=== PATIENT | male | born 1940 | race Caucasian/White ===

== ENCOUNTER 2020-03-15 06:17 | Inpatient (IN) | payer MEDICARE, MEDICAID, SELFPAY ==
[2020-03-15] VITALS (46 sets, daily range): BP systolic 116–176; BP diastolic 59–92; PULSE 78–123; RESP 14–48; TEMP 36.4–37.1; O2SAT 71–99; BMI 25.0
--- NOTE | 2020-03-15 06:18 | ECG_ITS ---
[facility] Test Date: 2020-03-15 Pat Name: Jamaal Whitlock Department: Room: ICU03 Gender: Male Test Deck Supervisor: : 1940 Requested By: Spencer Momin Order Number: [id number] Mary Jo MD: Nathaniel Alexander M.D. 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 [id number]
--- NOTE | 2020-03-15 06:18 | XR_ITS ---
WS: [id number] XR chest 1V portable [id number] REASON FOR EXAM: dyspnea/cough FINDINGS: Mild tortuosity of the thoracic aorta without significant dilatation. The heart is mildly enlarged. B attery pack over the left chest with leads to the right atrium and right ventricular apex. Patchy distribution of interstitial and alveolar infiltrative changes throughout both lungs but predo minating on the right. XR/XR chest 1V portable [id number] IMPRESSION: Diffuse infiltrates as above unknown chronicity without prior examination howev er most compatible with acute/subacute pneumonitis, less likely congestive hear t failure.
--- NOTE | 2020-03-15 06:22 | PC.NURSE ---
RT in room, pt placed on Bipap 50% Fio2
--- NOTE | 2020-03-15 06:23 | W.ED.SOB ---
HPI - SOB/Dyspnea General: Chief Complaint: Shortness of Breath/Dyspnea Stated Complaint: Transfer/A. Fib w/ RVR, SOB History of Present Illness: HPI Narrative: 80-year-old male presents emergency room via EMS from [facility] in [place]. He was to be a direct admit to the CSU however upon arrival he is on a nonrebreather mask at 10 L/min in acute respiratory distress impending respiratory failure. Patient was being transferred for A. fib with rapid ventricular response. He was in ER to ER transfer due to the pandemic however on arrival here EMS and the family both state that he tested positive for weeks ago for Covid at the skilled nursing. Its not in his documentation pack and we are verifying with old records the result. He has a history of A. fib history of COPD. Patient is nonresponsive except to painful stimuli son confirms that a do still want him as a full code. He recently had a colostomy takedown at [facility]. Review of Systems General: Reports: ROS unobtainable due to medical condition PFS ED PFSH: Medical History (Updated 03/15/20 @ 07:00 by Spencer Carr DO) A-fib Chronic kidney disease COPD (chronic obstructive pulmonary disease) Perforation of colon Ventricular tachycardia (paroxysmal) Surgical History (Updated 03/15/20 @ 06:54 by Spencer Carr DO) Colostomy status History of colostomy reversal Physical Exam Const: COMMON NORMALS: no acute distress GENERAL APPEARANCE: cooperative and comfortable ORIENTATION/CONSCIOUSNESS: Yes awake, Yes oriented to person, Yes oriented to place and Yes oriented to time HENMT: COMMON NORMALS: normocephalic, atraumatic and hearing grossly normal bilaterally HEAD & SCALP: normocephalic and atraumatic Resp: EFFORT & INSPECTION: Yes abnormal respiratory pattern and Yes respiratory distress AUSCULTATION: rhonchi, wheezes and diminished lung sounds Cardio: RATE: tachycardic RHYTHM: abnormal rhythm irregularly irregular GI: COMMON NORMALS: Soft to palpation and No hepatosplenomegaly present AUSCULTATION: Yes normoactive bowel sounds PALPATION: Yes Soft to palpation, No Tenderness to palpation present (GI), No Guarding due to palpation present (GI) and Yes No hepatosplenomegaly present Extremity: COMMON NORMALS: normal to inspection, capillary refill normal, no clubbing, cyanosis or edema, no calf tenderness and no pedal edema Neuro: SENSORIUM/ORIENTATION: Yes oriented to person, Yes oriented to place and Yes oriented to time Course Vital Signs: Vital signs: Vital Signs Temperature 97.6 F 03/15/20 06:09 Pulse Rate 106 H 03/15/20 08:15 Respiratory Rate 22 H 03/15/20 08:00 Blood Pressure 126/83 03/15/20 08:00 Pulse Oximetry 97 03/15/20 08:00 MDM - SOB/Dyspnea MDM Narrative: Medical decision making narrative: On arrival patient found to be in acute respiratory failure he is on 10 L/min on a nonrebreather and has an irregular respiratory pattern. EMS reports patient was combative in route and was given IV Versed. ABG was done he is found to be in hypercapnic respiratory failure and he was started on BiPAP. Cardizem was continued albeit switched from EMS his tubing to ours. Lab work was repeated the labs available of the thyroid receiving here on transfer were 12 hours old. Reviewing the chart found the patient has a chronic kidney disease and is currently on Bactrim could not confirm what the treatment was for. Also there is report from EMS and is confirmed by family that the patient tested positive for Covid 4 to 5 weeks ago. We are getting documentation for this from the skilled nursing. Since he has been known previously positive within the last 90 days at this point he does not need to be retested. Given his current status with his respiratory failure he will need to be admitted to the ICU. We have started him on BiPAP and repeat an ABG in approximately 45 minutes to an hour. Patient is a full code I discussed with Dr. Quiñones patient's current status and the need for ICU placement. Lab Data: Attestation: I reviewed the patient's lab results. Labs: Lab Results 03/15/20 Range/Units 06:18 Specimen Type Arterial Sample Site Brachial, right ABG pH 7.28 L (7.35-7.45) ABG pCO2 60.2 H* (35-45) mmHg ABG pO2 115.0 H (80.0-100.0) mmH g ABG HCO3 28.3 H (22-26) mmol/L ABG O2 Saturation 98.5 ABG Base Excess 1.0 (-2.0-2.0) mmol/ L Anup Test N/a A-a O2 Gradient 21.7 H (5-10) mmHg Hematocrit 25.2 L (42-52) % Hgb O2 Saturation 96.1 (95-100) % Carboxyhemoglobin 1.4 (0.4-20.1) %THgb Methemoglobin 1.1 (0.4-1.5) % Total Hemoglobin 8.2 L (14-18) g/dL Sodium 138.0 (131-143) mmol/L Potassium 4.9 (3.5-5.0) mmol/L Glucose 190.0 H (70-115) mg/dL Ionized Calcium 1.2 (1.1-1.4) mmol/L O2 Delivery Device Bipap FiO2 50.0 % Polymer Materials Consultant ID Miryam Discharge Plan Discharge Patient Disposition: Admitted As Inpatient Admit Provider: Kaykay Quiñones Clinical Impression: A-fib, Chronic kidney disease, Acute exacerbation of chronic obstructive airways disease, Acute hypercapnic respiratory failure Condition: Stable Coding Level of Care Code ED Holistic Specialist for Chg Fwd Exam Detailed
[2020-03-15 06:29] LABS: ABG PH Result 7.28 (7.35-7.45); Arterial Blood Gas Hematocrit 25.2 % (42-52); Blood Gas Sample Type Arterial; Carboxyhemoglobin 1.4 %THgb (0.4-20.1); HCO3 ABG 28.3 mmol/L (22-26); HGB O2 Sat 96.1 % (95-100); Ionized Calcium Level - ABG 1.2 mmol/L (1.1-1.4); Methemoglobin 1.1 % (0.4-1.5); Oxygen Saturation ABG 98.5; Potassium Level - ABG 4.9 mmol/L (3.5-5.0); Total Hemoglobin 8.2 g/dL (14-18)
[2020-03-15 06:30] LABS: Alveolar-Arterial Oxygen Gradi 21.7 mmHg (5-10); Blood Gas Operator Identificat HARKR; Blood Gas Sample Site Brachial, right; Oxygen Device BIPAP
[2020-03-15 06:31] LABS: ABG PCO2 60.2 mmHg (35-45)
[2020-03-15 07:05] LABS: Basophils % 0.2 %; Eosinophils % 0.1 %; Hematocrit 24.6 % (42.0-52.0); Hemoglobin 7.8 g/dL (11.7-16.6); Lymphocytes # 0.2 10^3/uL (0.8-4.8); Lymphocytes % 1.9 %; Mean Corpuscular HGB Conc 31.7 g/dL (30.0-36.0); Mean Corpuscular Hemoglobin 28.9 pg (28.0-34.0); Mean Corpuscular Volume 91.1 fL (80-94); Mean Platelet Volume 10.6 fL (7.4-10.4); Monocytes # 0.3 10^3/uL (0.2-0.9); Monocytes % 2.6 %; Neutrophils # 12.19 10^3/uL (1.8-7.7); Neutrophils % 94.4 %; Nucleated Red Blood Cells % 0.2 %; Platelet Count 330 10^3/cmm (130-400); Red Cell Distribution Width 16.8 % (12.1-15.1); White Blood Count 12.9 10^3/uL (4.0-10.0)
[2020-03-15 07:15] LABS: Troponin(5th) Baseline 91 ng/L (0-15)
[2020-03-15 07:16] LABS: Alanine Aminotransferase 22 U/L (0-41); Albumin Level 3.2 g/dL (3.5-5.2); Alkaline Phosphatase 117 IU/L (40-130); Aspartate Amino Transferase 23 U/L (0-40); Blood Urea Nitrogen 64 mg/dL (8-23); Carbon Dioxide 26 mmol/L (22-29); Chloride 94 mmol/L (98-107); Globulin 3.9 g/dL (1.3-4.6); Glucose 177 mg/dL (65-115); Osmolality Calculated 303 mOsm/kg (285-295); Sodium 135 mmol/L (136-145); Total Bilirubin 0.3 mg/dL (0.15-1.2); Total Protein 7.1 g/dL (6.6-8.7)
[2020-03-15 07:49] LABS: ABG PCO2 53.2 mmHg (35-45); ABG PH Result 7.33 (7.35-7.45); Arterial Blood Gas Hematocrit 22.6 % (42-52); Blood Gas Allen Test Pos; Blood Gas Operator Identificat MONRO; Blood Gas Sample Site Brachial, left; Blood Gas Sample Type Arterial; Carboxyhemoglobin 1.4 %THgb (0.4-20.1); HCO3 ABG 28.3 mmol/L (22-26); HGB O2 Sat 95.8 % (95-100); Ionized Calcium Level - ABG 1.2 mmol/L (1.1-1.4); Methemoglobin 1.2 % (0.4-1.5); Oxygen Device BIPAP; Oxygen Saturation ABG 98.3; Potassium Level - ABG 4.9 mmol/L (3.5-5.0); Total Hemoglobin 7.4 g/dL (14-18)
--- NOTE | 2020-03-15 08:18 | ECG_ITS ---
[facility] Test Date: 2020-03-15 Pat Name: Jamaal Whitlock Department: Room: ICU03 Gender: Male Senior Accountant: : 1940 Requested By: Spencer Momin Order Number: [id number] Mary Jo MD: Nathaniel Alexander M.D. Measurements Intervals [place] Rate: 92 P: NM: QRS: -72 QRSD: 125 T: -17 QT: 339 QTc: 420 Interpretive Statements ATRIAL FIBRILLATION SEPTAL MYOCARDIAL INFARCTION [40+ ms Q WAVE IN V1/V2], PROBABLY OLD INFERIOR MYOCARDIAL INFARCTION [40+ ms Q WAVE AND/OR ST/T ABNORMALITY IN II/aVF], OF INDETERMINATE AGE No previous ECG available for comparison Electronically Signed On 03-15-2020 20:57:36 HOMICIDE SQUAD SERGEANT by Nathaniel Alexander M.D. [id number]
[2020-03-15 08:46] LABS: Add Urine Microscopic? NO
[2020-03-15 09:19] LABS: Urine Appearance Clear (CLEAR); Urine Color Yellow (Yellow); pH Urine 5 (5-7)
[2020-03-15 09:20] LABS: Bilirubin Urine Neg (Negative); Blood Urine Neg (Negative); Glucose Urine UA Norm (Normal); Ketones Urine Negative (Negative); Leukocyte Esterase Urine Negative (Negative); Nitrate Urine Negative (Negative); Protein Urine Neg (Negative); Urobilinogen Urine Norm (Negative)
[2020-03-15 09:23] LABS: Troponin 5 2HR 88.41 ng/L (0-15)
[2020-03-15] MEDS: FUROsemide 10 mg/mL SDV 4mL 40 MG IVP (09:26)
[2020-03-15 09:30] LABS: SARS Covid-2 Antigen Negative (Negative)
[2020-03-15 09:33] LABS: Troponin 5 2HR Delta -2.59 ABS# (0-10)
--- NOTE | 2020-03-15 09:41 | PM.HP ---
Providers/Chief Complaint Admitting Physician: Kaykay Quiñones MD Primary Care Provider: Prachi Otero MD Chief Complaint: Transfer/A. Fib w/ RVR, SOB History of Present Illness Jamaal Whitlock is a 80 year old male transferred [facility] [place] for shortness of breath. From my understanding he had some significant anemia, etiology unclear and a transfusion of 2 units packed red blood cells occurred. Following this he had significant shortness of breath, and proceeded to the emergency department. BiPAP was required. He was also noted to be in atrial fibrillation with rapid ventricular rate, and Cardizem IV was initiated. In talking with the nursing facility he has mild shortness of breath with any exertion. He had Covid back in October, and tested positive again in February. He had recently come off quarantine. He had not had any recent fevers, vomiting, diarrhea. Greater than 3 months ago he had colostomy reversal which was initially placed secondary to diverticulitis. His wound has reopened and he has been placed on Bactrim recently. The wound was being packed with a small amount of gauze, quarter inch. There has not been any significant drainage. The nursing facility reports that he has some dementia, baseline tremors, can usually carry on a conversation and is ambulatory. They report they use Ativan occasionally when he gets agitated. He received Versed in route by EMS for agitation and is sleepy currently. Review of Systems General: Reports: ROS unobtainable due to mental status (Patient sleepy secondary to effect of Versed.) Medications/Allergies Home Medications Medication Instructions Recorded Confirmed Last Taken Type Unable to Assess 03/15/20 03/15/20 Unknown History Allergies Allergy/AdvReac Type Severity Reaction Status Date / Time azithromycin Allergy Unknown Verified 03/15/20 06:10 PFSH Acute PFSH: Medical History (Updated 03/15/20 @ 10:15 by Harris Almonte MD) A-fib Anemia Anxiety BPH (benign prostatic hyperplasia) Chronic kidney disease COPD (chronic obstructive pulmonary disease) Coronary artery disease Dementia Depression Diastolic CHF Gout Hyperlipidemia Hypertension Perforation of colon Pneumonia due to COVID-19 virus Ventricular tachycardia (paroxysmal) Surgical History (Updated 03/15/20 @ 06:54 by Spencer Carr DO) Colostomy status History of colostomy reversal Family History (Updated 03/15/20 @ 09:57 by Harris Almonte MD) Other Cancer Social History (Updated 03/15/20 @ 09:58 by Harris Almonte MD) Smoking and tobacco status: former smoker Supplemental [facility] Information: No current alcohol intake but unknown if previous. Vitals/I&O/Wt Last Vital Signs Temp 97.6 F 03/15/20 06:09 Pulse 107 H 03/15/20 09:15 Resp 20 H 03/15/20 09:15 BP 123/68 03/15/20 09:15 Pulse Ox 97 03/15/20 09:15 Weight last 48 hrs Weight 83.915 kg Physical Exam Narrative: EXAM NARRATIVE: General exam is a confused white male on BiPAP with a fine baseline tremor noted. He can open his eyes to stimulation, but is not really following directions currently. HEENT: BiPAP in place. Neck is supple no lymphadenopathy or thyromegaly Cardiovascular irregular, irregular with rapid rate of approximately 110. No obvious murmur. Lungs coarse breath sounds bilaterally Abdomen is soft, positive bowel sounds. At previous surgical site there is a bandage which I removed and demonstrated a small skin breakdown with tunneling. 6 cm of 1/4 inch gauze was removed. No significant drainage. . No Patel in place Extremities no cyanosis clubbing or edema, cap refill brisk Skin no rash Neurologic: Sleepy, and cannot cooperate with neurologic exam but moving all 4 extremities spontaneously Urinary Catheter Management^: Patel: Cath Placed During This Visit: yes Urinary Catheter Date of Insertion: 03/15/20 Urinary Catheter Time of Insertion: 08:19 Data : 03/15/20 06:54 03/15/20 06:56 Other data: Rapid flu at outside hospital was negative. BNP 13,180 Troponin fourth-generation 0.063 Procalcitonin 0.96 ABG outside hospital 7.37, PCO2 50, PO2 43 on 50% FiO2 by mask Urinalysis 0-3 red 0-3 whites INR 1.8 EKG reviewed by me demonstrated atrial fibrillation with rapid ventricular rate, left axis deviation. Rate was 143 at outside [place] emergency department. Poor R wave progression was noted. No acute ST elevation. Nonspecific ST-T wave changes noted. Hemoglobin 6.3 on March 14, prior to transfusion Recent previous normal TSH Previous positive Covid test, likely PCR from appearance of testing on October 31, 2019 Rapid Nucleic acid test January 30, 2020 - Positive nucleic acid test February 08, 2020 Second ABG here demonstrated a pH of 7.33, PCO2 53, PO2 105 on BiPAP at 50% FiO2 Troponin here baseline 91 with repeat at 88 at 120 minutes Urinalysis here negative Rapid Covid negative, PCR pending here Chest x-ray visualized me demonstrates diffuse infiltrates right greater than left and interstitial. A&P Assessment and plan (1) Acute hypercapnic respiratory failure: Currently being supported on BiPAP Wean oxygen as tolerated See notations under pneumonia and acute COPD exacerbation Status: Acute (2) Pneumonia: Initiate Zosyn Aspiration precautions Initiate linezolid instead of vancomycin secondary to renal insufficiency and acute kidney injury. MRSA PCR Sputum culture This could represent residual COVID-19 pneumonia Status: Acute (3) Diastolic CHF: He received Lasix prior to transfer and I gave him Lasix 40 mg IV in the emergency department. Hold any IV fluids Wean oxygen as tolerated Check echocardiogram Troponin was performed and elevation noted but not consistent with acute HI as no significant delta Status: Inactive (4) Anemia: Etiology of anemia is unclear Check stool Hemoccult As he is already been transfused 2 units of packed red blood cells iron, B12 studies, etc. would not be that useful. Repeat hemoglobin tomorrow and monitor for any bleeding This may in some part be secondary to his chronic kidney disease as there is some evidence of anemia on old laboratory at the nursing facility. Baseline hemoglobin may be around 9. Status: Inactive (5) Acute exacerbation of chronic obstructive airways disease: Pulmonary toilet with DuoNeb Prednisone 40 mg daily Status: Acute (6) Pneumonia due to COVID-19 virus: Patient had Covid in October, and has retested positive approximately 4 weeks ago. As I do not have a timeline on his improvement, will place him in the viral ICU currently. Rapid Covid was negative here and PCR testing pending. I suspect, his respiratory symptoms are due to heart failure/bacterial pneumonia or COPD exacerbation. If he makes rapid improvement and gets to his baseline oxygen there may not be a need for further quarantine and he could move out of the viral ICU. I do not think remdesivir is warranted currently. Status: Inactive (7) Hyperglycemia: Sliding scale insulin Check hemoglobin A1c Status: Acute (8) A-fib: Currently on a Cardizem drip Not a candidate for anticoagulation currently secondary to significant anemia Initiate Cardizem 60 mg 3 times daily which he takes at the nursing facility and wean off Cardizem drip. Further adjustments may be needed. Hold Eliquis secondary to concern of severe anemia Status: Acute (9) Chronic kidney disease: Acute kidney injury superimposed on chronic kidney disease. We will see if this improves with diuresis Avoid renal toxic medication Hold any further Bactrim which she was receiving as an outpatient. Status: Acute Additional A&P Information Skin breakdown, tunneling wound abdomen. This is small. There is no evidence of significant drainage. Continue packing as was being done at the nursing facility. Dementia/anxiety. Nursing facility as well as family reports Ativan has worked well for her in the past. Continue. Multiple other medical problems as outlined in his past medical history. Full code Hold anticoagulation currently secondary to significant anemia requiring transfusion Attestations Medical Necessity Statement*: Need greater than 2 midnight stay for evaluation and treatment of pneumonia, acute diastolic heart failure, possible Covid Time Spent in Patient Care: Greater than 35 minutes Critical Care Time: 79 minutes spent in critical care at bedside evaluating patient, discussing with multiple subspecialists including ER physician, nursing facility staff, family, etc. in this patient with multiple comorbidities, acute respiratory failure, acute kidney injury, pneumonia, recent Covid, etc. with high risk of and/or decompensation. Coding Level of Care Code Acute Other Sports Coach Or Instructor for John Paul Lenz Diagnoses Acute hypercapnic respiratory failure J96.02 Pneumonia J18.9 Diastolic CHF I50.30 Anemia D64.9 Acute exacerbation of chronic obstructive airways disease J44.1 Pneumonia due to COVID-19 virus U07.1; J12.89 Hyperglycemia R73.9 A-fib I48.91 Chronic kidney disease N18.9
--- NOTE | 2020-03-15 12:18 | ECG_ITS ---
[facility] Test Date: 2020-03-15 Pat Name: Jamaal Whitlock Department: Room: ICU19 Gender: Male Monitor And Storage Bin Tender: : 1940 Requested By: Spencer Momin Order Number: [id number] Mary Jo MD: Nathaniel Alexander M.D. Measurements Intervals [place] Rate: 115 P: CA: QRS: -72 QRSD: 109 T: 49 QT: 295 QTc: 408 Interpretive Statements ATRIAL FIBRILLATION WITH RAPID VENTRICULAR RESPONSE INFERIOR MYOCARDIAL INFARCTION [40+ ms Q WAVE AND/OR ST/T ABNORMALITY IN II/aVF], OF INDETERMINATE AGE WARNING: DATA QUALITY MAY AFFECT INTERPRETATION Compared to ECG 03/15/2020 08:33:19 No significant changes Electronically Signed On 03-15-2020 20:57:52 PREPARATION PLANT REPAIRER by Nathaniel Alexander M.D. [id number]
[2020-03-15 12:29] LABS: Troponin 5 6HR 77.63 ng/L (0-15)
--- NOTE | 2020-03-15 12:49 | PC.RESP ---
Pulmonary Rehab information sent to patient.
[2020-03-15 13:04] LABS: Estmated Average Glucose 108; Hemoglobin A1C 5.4 % (4.0-6.0)
--- NOTE | 2020-03-15 14:10 | USCV_ITS ---
Jamaal Whitlock Age: 80 Gender: M : 1940 Exam Date: 03/15/2020 14:33 Ordering Phys: Harris Almonte MD Technologist: Oliver Lee Exam Location: [facility] [place] Indication: CHF BP: 130 / 86 HR: 94 Rhythm: Sinus Technical Quality: Fair MEASUREMENTS (Male / Female) Normal Values 2D ECHO LV Diastolic Diameter PLAX 5.4 cm 4.2 - 5.9 / 3.9 - 5.3 cm LV Systolic Diameter PLAX 3.4 cm IVS Diastolic Thickness 0.9 cm 0.6 - 1.0 / 0.6 - 0.9 cm IVS Systolic Thickness 1.7 cm LVPW Diastolic Thickness 1.2 cm 0.6 - 1.0 / 0.6 - 0.9 cm LVPW Systolic Thickness 1.5 cm LVOT Diameter 2.1 cm LV Ejection Fraction 2C AL 47.8 % LA Diameter 3.0 cm LA Width 4.7 cm LA Height 4.9 cm RA Width 3.8 cm RA Height 4.5 cm Aorta at Sinotubular Diameter 3.3 cm M-MODE LV Diastolic Diameter MM 6.1 cm 4.2 - 5.9 / 3.9 - 5.3 cm LV Systolic Diameter MM 4.7 cm LV Ejection Fraction MM Teich 43.5 % IVS Diastolic Thickness MM 1.0 cm 0.6 - 1.0 / 0.6 - 0.9 cm IVS Systolic Thickness MM 1.6 cm LVPW Diastolic Thickness MM 1.5 cm 0.6 - 1.0 / 0.6 - 0.9 cm LVPW Systolic Thickness MM 2.0 cm RV Diastolic Diameter MM 1.7 cm Aortic Annulus Diameter 4.0 cm LA Ao Ratio MM 0.6 MV E Point Septal Separation 1.0 cm DOPPLER AV Peak Velocity 103.0 cm/s LVOT Peak Velocity 77.0 cm/s AV Area Cont Eq vti 2.0 cm squared AV Area Cont Eq pk 2.6 cm squared MV Area PHT 5.0 cm squared Mitral E to A Ratio 2.5 MV E' Velocity 55.5 cm/s Mitral E to MV E' Ratio 9.4 Mitral E to LV E' Lateral Ratio 6.4 Mitral E to LV E' Septal Ratio 17.2 TR Peak Velocity 245.7 cm/s TR Peak Gradient 24.1 mmHg TV Peak E Velocity 97.0 cm/s Right Atrial Pressure 3.0 mmHg Pulmonary Artery Systolic Pressu 27.1 mmHg FINDINGS Left Ventricle Severely increased left ventricular cavity size. Severely decreased left ventricular systolic function. Left ventricular ejection fraction is estimated at 37 %. There appeared to be mid to distal anterior mid to distal lateral and apical wall hypokinesis. Right Ventricle The right ventricle is normal in size and function. Right Atrium The right atrium is normal in size. Left Atrium The left atrium is normal in size. Mitral Valve Moderately thickened mitral valve. Moderate mitral annular calcification. No mitral valve stenosis. Trace mitral valve regurgitation. Aortic Valve Moderate aortic valve calcification. No aortic valve stenosis. No aortic valve regurgitation. Tricuspid Valve Structurally normal tricuspid valve without significant stenosis or regurgitation. Pulmonary artery systolic pressure is normal. Pulmonic Valve Structurally normal pulmonic valve without significant stenosis. There is no pulmonic regurgitation. Pericardium Normal pericardium without effusion. Aorta Normal ascending aorta dimension. CONCLUSIONS 1-Severely increased left ventricular cavity size. Severely decreased left ventricular systolic function. Left ventricular ejection fraction is estimated at 37 %. There appeared to be mid to distal anterior mid to distal lateral and apical wall hypokinesis. 2-No significant valve abnormalities. 3-There is no pericardial effusion. 4-Pulmonary artery systolic pressure is within normal limits. 5-Right atrial pressure is around 5 mm of mercury. 6-There are no prior echocardiogram studies to compare. Kaykay Curtis MD (Electronically Signed) Final Date: 15 March 2020 20:32 S
[2020-03-15] MEDS: linezolid premix 600 MG/300 ML PREMIX 300 MG IV (15:13)
[2020-03-15] MEDS: ipratropium-albuterol 3 mL Neb INHALATION ×3 (15:45→23:30)
[2020-03-15] MEDS: piperacillin-tazobactam 3.375 GM in sodium chloride 0.9% (plus) 50 ML IV ×2 (15:55→23:56)
[2020-03-15 16:03] LABS: Glucose Point of Care 186 mg/dL (70-110)
[2020-03-15] MEDS: dilTIAZem 60 mg Tablet PO ×2 (16:18→21:41)
[2020-03-15 17:21] LABS: Glucose Point of Care 203 mg/dL (70-110)
[2020-03-15] MEDS: pantoprazole DR 40 mg Tablet PO (17:23)
[2020-03-15] MEDS: LORazepam 2 mg/mL INJ 1 mL 0.5 MG IVP (17:55)
[2020-03-15] MEDS: morphine 4 mg/mL SDV 1 mL 2 MG IVP (19:04)
--- NOTE | 2020-03-15 19:25 | PC.NURSE ---
Report given to DARINEL Gold. Shift summary: Pt has been on BiPap for most of the afternoon until about dinner time. He frequently demands drinks of water. When he is not hurrying he does not have swallowing problems. He has significant bruising on his right upper extremity He also has bruising on his face and left upper extremity. He yells out for helo and the high flow cannula will be on his chin. He does pull at it. He has had panic attacks , yelling out he cannot breath. His voice could be hear loudly at the nurse station. Cardizem gtt titrated off, after P.O. administered. 650ml yellow urine catheter output. SCds applied.
--- NOTE | 2020-03-15 21:00 | PC.NURSE ---
Blood glucose is 150
[2020-03-15 21:04] LABS: Glucose Point of Care 150 mg/dL (70-110)
[2020-03-15] MEDS: finasteride 5 mg Tablet PO (21:41)
[2020-03-16] VITALS (88 sets, daily range): BP systolic 112–150; BP diastolic 60–112; PULSE 89–145; RESP 16–46; TEMP 36.6–37.3; O2SAT 78–98; BMI 24.5
[2020-03-16] MEDS: ipratropium-albuterol 3 mL Neb INHALATION ×6 (03:41→23:10)
[2020-03-16] MEDS: linezolid premix 600 MG/300 ML PREMIX 300 MG IV ×2 (03:48→14:33)
[2020-03-16 05:15] LABS: Basophils % 0.2 %; Lymphocytes # 0.5 10^3/uL (0.8-4.8); Lymphocytes % 3.3 %; Mean Corpuscular HGB Conc 31.7 g/dL (30.0-36.0); Mean Corpuscular Hemoglobin 28.9 pg (28.0-34.0); Mean Corpuscular Volume 91.3 fL (80-94); Mean Platelet Volume 10.7 fL (7.4-10.4); Monocytes # 1.2 10^3/uL (0.2-0.9); Monocytes % 7.6 %; Neutrophils # 13.67 10^3/uL (1.8-7.7); Neutrophils % 87.7 %; Nucleated Red Blood Cells % 0.3 %; Platelet Count 338 10^3/cmm (130-400); Red Blood Count 2.18 10^6/uL (4.1-5.3); Red Cell Distribution Width 15.9 % (12.1-15.1); White Blood Count 15.6 10^3/uL (4.0-10.0)
[2020-03-16 05:37] LABS: Alanine Aminotransferase 19 U/L (0-41); Albumin Level 3.2 g/dL (3.5-5.2); Alkaline Phosphatase 96 IU/L (40-130); Aspartate Amino Transferase 22 U/L (0-40); Calcium 9.1 mg/dL (8.5-10.5); Carbon Dioxide 27 mmol/L (22-29); Chloride 92 mmol/L (98-107); Globulin 3.5 g/dL (1.3-4.6); Glucose 143 mg/dL (65-115); Magnesium 2.4 mg/dL (1.7-2.3); Osmolality Calculated 306 mOsm/kg (285-295); Sodium 133 mmol/L (136-145); Total Bilirubin 0.3 mg/dL (0.15-1.2); Total Protein 6.7 g/dL (6.6-8.7)
[2020-03-16 05:50] LABS: Blood Urea Nitrogen 91 mg/dL (8-23); Hematocrit 19.9 % (42.0-52.0); Hemoglobin 6.3 g/dL (11.7-16.6)
--- NOTE | 2020-03-16 08:06 | PM.PN ---
Subjective Subjective: Interval history: Patient is a poor historian. He is very hard of hearing and appears to have some degree of dementia. His hemoglobin is down to 6.3 this morning. We have difficulty obtaining IV line and patient's RN is currently working on it. He remains in atrial fibrillation and his heart rate is in 120s. Platelets are stable and WBC slightly increased. BUN and creatinine increased and clinical picture overall suggestive of upper GI bleed. Patient had no bowel movement yet. He has small opening from previous abdominal surgery for colostomy reversal that is currently being packed. Appears dry and not infected with small amount of packing in it. Patient noted to have pacemaker device. He is currently on 50 L 40% FiO2 saturating in the mid 90s. He does not appear in distress. Blood pressure is stable. Vitals/I&O/Wt Last Vital Signs Temp 97.8 F 03/16/20 04:00 Pulse 115 H 03/16/20 06:00 Resp 18 03/16/20 06:00 BP 122/95 03/16/20 06:00 Pulse Ox 94 03/16/20 06:00 03/15/20 03/16/20 03/16/20 22:59 06:59 14:59 Intake Total 1083.000 / 1083.000 350 / 1433.000 Output Total 650 / 650 425 / 1075 Balance 433.000 / 433.000 -75 / 358.000 Weight last 48 hrs Weight 81.873 kg Weight 81.873 kg Weight 83.915 kg Physical Exam Const: COMMON NORMALS: no acute distress Resp: COMMON NORMALS: normal respiratory effort OTHER: Decreased air movement with coarse breath sounds but no rales or wheezing. Cardio: PALPATION: abnormal PMI RHYTHM: abnormal rhythm irregularly irregular OTHER: No lower extremity edema GI: COMMON NORMALS: Normal to inspection, nondistended, normoactive bowel sounds present, Soft to palpation and non-tender PALPATION: Yes Soft to palpation Neuro: COMMON NORMALS: no focal motor deficits Urinary Catheter Management^: Patel: Cath Placed During This Visit: yes Reason for Continuing Indwelling Catheter: Accurate Measurement of Urinary Output in Critically Ill Patients Urinary Catheter Date of Insertion: 03/15/20 Urinary Catheter Time of Insertion: 08:19 Data : 03/16/20 04:30 03/16/20 04:30 Micro: Microbiology 03/16/20 04:05 Blood Culture - Preliminary Blood SPECIMEN COLLECTED A&P Assessment and plan (1) Acute hypercapnic respiratory failure: Currently being supported on BiPAP Wean oxygen as tolerated See notations under pneumonia and acute COPD exacerbation Status: Acute (2) Pneumonia: Initiate Zosyn Aspiration precautions Initiate linezolid instead of vancomycin secondary to renal insufficiency and acute kidney injury. MRSA PCR Sputum culture This could represent residual COVID-19 pneumonia Status: Acute (3) Diastolic CHF: He received Lasix prior to transfer and I gave him Lasix 40 mg IV in the emergency department. Hold any IV fluids Wean oxygen as tolerated Check echocardiogram Troponin was performed and elevation noted but not consistent with acute VT as no significant delta Status: Inactive (4) Anemia: Etiology of anemia is unclear Check stool Hemoccult As he is already been transfused 2 units of packed red blood cells iron, B12 studies, etc. would not be that useful. Repeat hemoglobin tomorrow and monitor for any bleeding This may in some part be secondary to his chronic kidney disease as there is some evidence of anemia on old laboratory at the nursing facility. Baseline hemoglobin may be around 9. Status: Inactive (5) Acute exacerbation of chronic obstructive airways disease: Pulmonary toilet with DuoNeb Prednisone 40 mg daily Status: Acute (6) Pneumonia due to COVID-19 virus: Patient had Covid in October, and has retested positive approximately 4 weeks ago. As I do not have a timeline on his improvement, will place him in the viral ICU currently. Rapid Covid was negative here and PCR testing pending. I suspect, his respiratory symptoms are due to heart failure/bacterial pneumonia or COPD exacerbation. If he makes rapid improvement and gets to his baseline oxygen there may not be a need for further quarantine and he could move out of the viral ICU. I do not think remdesivir is warranted currently. Status: Inactive (7) Hyperglycemia: Sliding scale insulin Check hemoglobin A1c Status: Acute (8) A-fib: Currently on a Cardizem drip Not a candidate for anticoagulation currently secondary to significant anemia Initiate Cardizem 60 mg 3 times daily which he takes at the nursing facility and wean off Cardizem drip. Further adjustments may be needed. Hold Eliquis secondary to concern of severe anemia Status: Acute (9) Chronic kidney disease: Acute kidney injury superimposed on chronic kidney disease. We will see if this improves with diuresis Avoid renal toxic medication Hold any further Bactrim which she was receiving as an outpatient. Status: Acute Additional A&P Information Skin breakdown, tunneling wound abdomen. This is small. There is no evidence of significant drainage. Continue packing as was being done at the nursing facility. Dementia/anxiety. Nursing facility as well as family reports Ativan has worked well for her in the past. Continue. Multiple other medical problems as outlined in his past medical history. Full code Hold anticoagulation currently secondary to significant anemia requiring transfusion PLAN: Discontinue prednisone and continue high-dose Protonix. Unfortunately we do not have IV form due to shortage. We will give patient 2 units of PRBC. Continue Zosyn and linezolid. Patient is currently off Cardizem drip. Will increase p.o. Cardizem to 90 mg 3 times daily for better heart rate control. Continue holding Eliquis. If continues to bleed we will require upper endoscopy and colonoscopy. Attestations Medical Necessity Statement*: Patient with A. fib and rapid ventricular response as well as severe anemia with concern for GI bleed requires close ICU monitoring and treatment. Coding Level of Care Code Acute Desktop Support Engineer for g Fwd Diagnoses Acute hypercapnic respiratory failure J96.02 Pneumonia J18.9 Diastolic CHF I50.30 Anemia D64.9 Acute exacerbation of chronic obstructive airways disease J44.1 Pneumonia due to COVID-19 virus U07.1; J12.89 Hyperglycemia R73.9 A-fib I48.91 Chronic kidney disease N18.9
[2020-03-16 08:10] LABS: Glucose Point of Care 162 mg/dL (70-110)
[2020-03-16] MEDS: allopurinol 100 mg Tablet 200 MG PO (08:37)
[2020-03-16] MEDS: tamsulosin 0.4 mg Capsule PO (08:37)
[2020-03-16] MEDS: pantoprazole DR 40 mg Tablet PO ×2 (08:37→17:45)
[2020-03-16] MEDS: roflumilast 500 mcg Tablet PO (08:38)
[2020-03-16] MEDS: dilTIAZem 60 mg Tablet 90 MG PO ×3 (08:38→20:28)
[2020-03-16] MEDS: piperacillin-tazobactam 3.375 GM in sodium chloride 0.9% (plus) 50 ML IV ×2 (10:04→16:43)
[2020-03-16] MEDS: gabapentin 100 mg Capsule 200 MG PO ×2 (10:06→17:45)
[2020-03-16 11:48] LABS: Glucose Point of Care 141 mg/dL (70-110)
[2020-03-16] MEDS: morphine 4 mg/mL SDV 1 mL 2 MG IVP (11:58)
--- NOTE | 2020-03-16 15:25 | PC.NURSE ---
Called Dr Ruano regarding patients bleeding around iv site, venipuncture sites. Did express to him the need for a central line and DIC panel. He did order for DIC panel and this was drawn. Pt did receive 1 unit of PRBC's however, patient is bleeding around iv site, will hold off on 2nd unit of blood until the DIC panel comes back.
[2020-03-16 15:47] LABS: INR 1.55 (0.8-1.2)
[2020-03-16 15:48] LABS: Fibrinogen 627 mg/dL (174-498); Partial Thromboplastin Time 34.7 SECONDS (23.9-36.7)
[2020-03-16 15:57] LABS: D Dimer 7.29 ug/mIFEU (0-0.59)
[2020-03-16 16:57] LABS: Glucose Point of Care 238 mg/dL (70-110)
[2020-03-16] MEDS: acetaminophen 325 mg Tablet 650 MG PO (17:40)
--- NOTE | 2020-03-16 17:50 | PC.PT ---
PT note; nursing staff states patient unable to participate with physical therapy evaluation at this time, will follow
--- NOTE | 2020-03-16 19:00 | PC.NURSE ---
Report received, care assumed. Monitor alarms, plan of care et previous orders reviewed. patient currently sitting in bed, HOB at 45 degrees, with unit # [id number] infusing. Patient is very restless et agitated. Attempts to verbally reduce anxiety have been unsuccessful due to patient's hearing loss. RN reassured patient that i would stay with him. RN is able to communicate with patient by writing notes on dry erase board. Patient is currently on heated high flow nasal canula at 50 L with FiO2 of 40%. Please see physical assessment et vital sign flowsheet for details .
--- NOTE | 2020-03-16 19:45 | PC.NURSE ---
Unit of PRBCs infused. Vital signs noted. No transfusion reaction noted at this time. Will keep infusion bag et tubing per protocol.
[2020-03-16] MEDS: finasteride 5 mg Tablet PO (20:29)
[2020-03-16 22:01] LABS: Glucose Point of Care 116 mg/dL (70-110)
[2020-03-17] VITALS (91 sets, daily range): BP systolic 103–160; BP diastolic 55–133; PULSE 93–133; RESP 10–39; TEMP 36.6–37.1; O2SAT 83–98; BMI 23.9
[2020-03-17] MEDS: piperacillin-tazobactam 3.375 GM in sodium chloride 0.9% (plus) 50 ML IV ×4 (00:40→23:15)
[2020-03-17] MEDS: ipratropium-albuterol 3 mL Neb INHALATION ×5 (03:02→20:20)
--- NOTE | 2020-03-17 03:45 | PC.NURSE ---
Patient's son, Duane came to hospital to visit patient. VICU supercharger repair supervisor went to speak with him about visiting guidelines. Patient's son Duane face-timed with patient at this time.
[2020-03-17] MEDS: linezolid premix 600 MG/300 ML PREMIX 300 MG IV ×2 (03:49→17:21)
--- NOTE | 2020-03-17 04:00 | PC.NURSE ---
Received patient's critical BUN. Notified Dr. Quiñones. No new orders given at this time.
[2020-03-17 05:21] LABS: Alanine Aminotransferase 21 U/L (0-41); Albumin Level 3.3 g/dL (3.5-5.2); Alkaline Phosphatase 91 IU/L (40-130); Anion Gap 18.5 (5-19); Aspartate Amino Transferase 24 U/L (0-40); Calcium 8.8 mg/dL (8.5-10.5); Carbon Dioxide 26 mmol/L (22-29); Chloride 93 mmol/L (98-107); Globulin 3.2 g/dL (1.3-4.6); Glucose 149 mg/dL (65-115); Osmolality Calculated 309 mOsm/kg (285-295); Potassium 4.5 mmol/L (3.5-5.1); Sodium 133 mmol/L (136-145); Total Bilirubin 0.7 mg/dL (0.15-1.2); Total Protein 6.5 g/dL (6.6-8.7)
[2020-03-17 05:29] LABS: Blood Urea Nitrogen 98 mg/dL (8-23)
[2020-03-17 07:28] LABS: Glucose Point of Care 161 mg/dL (70-110)
--- NOTE | 2020-03-17 08:11 | P.PN_ITS ---
Subjective Subjective: Interval history: Patient's CBC was canceled for some reason but this morning and noticed his WBC count improved to 14 and hemoglobin appears at 8.6. Creatinine slightly worsened. Patient had episode of choking this morning as soon as he started eating. History was taken away and speech therapy was requested. He was able to settle and was doing clinically okay. His oxygen was slightly increased to 50 L and 50% and he was saturating in the low 90s. He denies chest pain or abdominal pain. He had no bowel movement yet. He had 1350 urinary output. He moves all extremities without problems. He has upper extremity tremors and as per daughter he was not previously diagnosed with Parkinson's disease although family was suspecting. Vitals/I&O/Wt Last Vital Signs Temp 98.2 F 03/17/20 04:00 Pulse 107 H 03/17/20 08:10 Resp 22 H 03/17/20 08:10 BP 127/76 03/17/20 06:00 Pulse Ox 93 03/17/20 08:10 03/16/20 03/17/20 03/17/20 22:59 06:59 14:59 Intake Total 1165 / 1925 750 / 2675 Output Total 550 / 900 650 / 1550 Balance 615 / 1025 100 / 1125 Weight last 48 hrs Weight 80.014 kg Weight 81.873 kg Weight 81.873 kg Physical Exam Const: COMMON NORMALS: no acute distress Resp: COMMON NORMALS: normal respiratory effort OTHER: Decreased air movement with coarse breath sounds but no rales or wheezing. Cardio: PALPATION: abnormal PMI RHYTHM: abnormal rhythm irregularly irregular OTHER: No lower extremity edema GI: COMMON NORMALS: Normal to inspection, nondistended, normoactive bowel so unds present, Soft to palpation and non-tender PALPATION: Yes Soft to palpation Neuro: COMMON NORMALS: no focal motor deficits Urinary Catheter Management^: Patel: Cath Placed During This Visit: yes Reason for Continuing Indwelling Catheter: Accurate Measurement of Urinary Output in Critically Ill Patients Urinary Catheter Date of Insertion: 03/15/20 Urinary Catheter Time of Insertion: 08:19 Data : 03/16/20 04:30 03/17/20 04:00 Micro: Microbiology 03/16/20 04:05 Blood Culture - Preliminary Blood NEGATIVE TO DATE 03/16/20 09:30 Blood Culture - Preliminary Blood SPECIMEN COLLECTED A&P Assessment and plan (1) Acute hypercapnic respiratory failure: Currently being supported on BiPAP Wean oxygen as tolerated See notations under pneumonia and acute COPD exacerbation Status: Acute (2) Pneumonia: Initiate Zosyn Aspiration precautions Initiate linezolid instead of vancomycin secondary to renal insufficiency and acute kidney injury. MRSA PCR Sputum culture This could represent residual COVID-19 pneumonia Status: Acute (3) Diastolic CHF: He received Lasix prior to transfer and I gave him Lasix 40 mg IV in the emergency department. Hold any IV fluids Wean oxygen as tolerated Check echocardiogram Troponin was performed and elevation noted but not consistent with acute MD as no significant delta Status: Inactive (4) Anemia: Etiology of anemia is unclear Check stool Hemoccult As he is already been transfused 2 units of packed red blood cells iron, B12 studies, etc. would not be that useful. Repeat hemoglobin tomorrow and monitor for any bleeding This may in some part be secondary to his chronic kidney disease as there is some evidence of anemia on old laboratory at the nursing facility. Baseline hemoglobin may be around 9. Status: Inactive (5) Acute exacerbation of chronic obstructive airways disease: Pulmonary toilet with DuoNeb Prednisone 40 mg daily Status: Acute (6) Pneumonia due to COVID-19 virus: Patient had Covid in October, and has retested positive approximately 4 weeks ago. As I do not have a timeline on his improvement, will place him in the viral ICU currently. Rapid Covid was negative here and PCR testing pending. I suspect, his respiratory symptoms are due to heart failure/bacterial pneumonia or COPD exacerbation. If he makes rapid improvement and gets to his baseline oxygen there may not be a need for further quarantine and he could move out of the viral ICU. I do not think remdesivir is warranted currently. Status: Inactive (7) Hyperglycemia: Sliding scale insulin Check hemoglobin A1c Status: Acute (8) A-fib: Currently on a Cardizem drip Not a candidate for anticoagulation currently secondary to significant anemia Initiate Cardizem 60 mg 3 times daily which he takes at the nursing facility and wean off Cardizem drip. Further adjustments may be needed. Hold Eliquis secondary to concern of severe anemia Status: Acute (9) Chronic kidney disease: Acute kidney injury superimposed on chronic kidney disease. We will see if this improves with diuresis Avoid renal toxic medication Hold any further Bactrim which she was receiving as an outpatient. Status: Acute Additional A&P Information Skin breakdown, tunneling wound abdomen. This is small. There is no evidence o f significant drainage. Continue packing as was being done at the nursing facility. Dementia/anxiety. Nursing facility as well as family reports Ativan has worked well for her in the past. Continue. Multiple other medical problems as outlined in his past medical history. Full code Hold anticoagulation currently secondary to significant anemia requiring transfusion PLAN: Continue antibiotics which will adequately cover for aspiration pneumonia. It appears that patient has combination of COVID-19 pneumonia and aspiration as most of his infiltrates are on the right side. Awaiting speech therapy evaluation. Continue IV fluids. Awaiting CBC. Patient's Eliquis should be close to be completely metabolized. Will request PT/PTT and chest x-ray in a.m. Overall patient has poor prognosis given his age, functional status, underlying medical problems and now dysphagia. I had discussion with patient's daughter yesterday who wants patient to remain full code. Attestations Medical Necessity Statement*: Patient with acute hypoxic respiratory failure as well as COVID-19 infection and aspiration requires close ICU monitoring and treatment. Time Spent in Patient Care: 16 - 35 minutes Coding Level of Care Code Acute Group Insurance Specialist for [facility] Fwd Diagnoses Acute hypercapnic respiratory failure J96.02 Pneumonia J18.9 Diastolic CHF I50.30 Anemia D64.9 Acute exacerbation of chronic obstructive airways disease J44.1 Pneumonia due to COVID-19 virus U07.1; J12.89 Hyperglycemia R73.9 A-fib I48.91 Chronic kidney disease N18.9
--- NOTE | 2020-03-17 08:18 | PC.NURSE ---
Pt choked on food this morning after 2 bites, does require someone to feed him. Speech eval order entered and Dr Ruano notified.
[2020-03-17] MEDS: morphine 4 mg/mL SDV 1 mL 2 MG IVP (08:37)
--- NOTE | 2020-03-17 10:52 | PC.NURSE ---
Pt meds not given per MD, patient awaiting speech therapy eval. All meds held, Wilfredo ordered IVP prn
[2020-03-17 11:48] LABS: Glucose Point of Care 154 mg/dL (70-110)
[2020-03-17 11:55] LABS: Basophils % 0.1 %; Hematocrit 26.6 % (42.0-52.0); Hemoglobin 8.6 g/dL (11.7-16.6); Lymphocytes # 0.6 10^3/uL (0.8-4.8); Lymphocytes % 3.9 %; Mean Corpuscular HGB Conc 32.3 g/dL (30.0-36.0); Mean Corpuscular Volume 89.6 fL (80-94); Mean Platelet Volume 10.6 fL (7.4-10.4); Monocytes # 1.3 10^3/uL (0.2-0.9); Monocytes % 8.8 %; Neutrophils # 12.49 10^3/uL (1.8-7.7); Neutrophils % 85.9 %; Nucleated Red Blood Cells # 0.1 /100WBC; Nucleated Red Blood Cells % 0.6 %; Platelet Count 302 10^3/cmm (130-400); Red Blood Count 2.97 10^6/uL (4.1-5.3); White Blood Count 14.5 10^3/uL (4.0-10.0)
[2020-03-17 16:46] LABS: Glucose Point of Care 181 mg/dL (70-110)
[2020-03-17] MEDS: budesonide 0.5 mg/2 mL Neb INHALATION (20:20)
[2020-03-17 20:48] LABS: Glucose Point of Care 156 mg/dL (70-110)
[2020-03-17] MEDS: dilTIAZem 60 mg Tablet 90 MG PO (20:50)
[2020-03-17] MEDS: LORazepam 2 mg/mL INJ 1 mL 0.5 MG IVP (21:49)
[2020-03-18] VITALS (37 sets, daily range): BP systolic 95–162; BP diastolic 61–99; PULSE 95–139; RESP 13–34; TEMP 36.4–36.8; O2SAT 86–97; BMI 23.9
[2020-03-18] MEDS: morphine 4 mg/mL SDV 1 mL 2 MG IVP ×2 (03:10→16:27)
[2020-03-18] MEDS: LORazepam 2 mg/mL INJ 1 mL 0.5 MG IVP ×2 (03:10→23:18)
[2020-03-18] MEDS: linezolid premix 600 MG/300 ML PREMIX 300 MG IV (03:11)
--- NOTE | 2020-03-18 03:40 | PC.NURSE ---
Patient very agitated. Pulling O2 out of nose, yelling at RN et not responding to verbal attempts to calm et provide reassurance to patient. Ativan given at this time. Will continue to monitor.
--- NOTE | 2020-03-18 04:00 | PC.NURSE ---
Patient responded to ativan. Patient no calmer, not yelling/ swinging at RN. Will continue to monitor.
[2020-03-18] MEDS: ipratropium-albuterol 3 mL Neb INHALATION ×5 (04:22→20:44)
[2020-03-18 05:10] LABS: Alanine Aminotransferase 24 U/L (0-41); Albumin Level 3.2 g/dL (3.5-5.2); Alkaline Phosphatase 88 IU/L (40-130); Anion Gap 14.5 (5-19); Aspartate Amino Transferase 29 U/L (0-40); Calcium 8.8 mg/dL (8.5-10.5); Carbon Dioxide 30 mmol/L (22-29); Chloride 97 mmol/L (98-107); Globulin 3.1 g/dL (1.3-4.6); Glucose 96 mg/dL (65-115); Osmolality Calculated 313 mOsm/kg (285-295); Potassium 4.5 mmol/L (3.5-5.1); Sodium 137 mmol/L (136-145); Total Bilirubin 0.5 mg/dL (0.15-1.2); Total Protein 6.3 g/dL (6.6-8.7)
[2020-03-18 05:18] LABS: Blood Urea Nitrogen 93 mg/dL (8-23)
--- NOTE | 2020-03-18 06:00 | XR_ITS ---
WS: [id number] XR chest 1V portable [id number] REASON FOR EXAM: Aspiration, COVID-19 infection FINDINGS: In comparison to previous examination of 03/15/2020, the diffuse lung opacities in both lungs show so me decreasing density and volume. No other interval change or new finding identified. XR/XR chest 1V portable [id number] IMPRESSION: There is been some resolution of the diffuse infiltrative changes in both lungs .
[2020-03-18 06:04] LABS: INR 1.28 (0.8-1.2)
[2020-03-18 06:05] LABS: Partial Thromboplastin Time 32.7 SECONDS (23.9-36.7)
[2020-03-18 07:34] LABS: Basophils % 0.1 %; Eosinophils # 0.1 10^3/uL (0.0-0.8); Eosinophils % 0.4 %; Hematocrit 25.3 % (42.0-52.0); Hemoglobin 7.9 g/dL (11.7-16.6); Lymphocytes # 0.6 10^3/uL (0.8-4.8); Mean Corpuscular HGB Conc 31.2 g/dL (30.0-36.0); Mean Corpuscular Hemoglobin 28.8 pg (28.0-34.0); Mean Corpuscular Volume 92.3 fL (80-94); Mean Platelet Volume 10.8 fL (7.4-10.4); Monocytes # 1.3 10^3/uL (0.2-0.9); Monocytes % 11.1 %; Neutrophils # 9.73 10^3/uL (1.8-7.7); Neutrophils % 81.6 %; Nucleated Red Blood Cells # 0.1 /100WBC; Nucleated Red Blood Cells % 0.8 %; Platelet Count 291 10^3/cmm (130-400); Red Blood Count 2.74 10^6/uL (4.1-5.3); Red Cell Distribution Width 15.1 % (12.1-15.1); White Blood Count 11.9 10^3/uL (4.0-10.0)
[2020-03-18 07:38] LABS: Glucose Point of Care 119 mg/dL (70-110)
[2020-03-18] MEDS: piperacillin-tazobactam 3.375 GM in sodium chloride 0.9% (plus) 50 ML IV ×2 (08:44→15:28)
[2020-03-18] MEDS: dilTIAZem 60 mg Tablet 90 MG PO ×3 (08:45→20:56)
[2020-03-18] MEDS: tamsulosin 0.4 mg Capsule PO (08:45)
[2020-03-18] MEDS: pantoprazole DR 40 mg Tablet PO (08:45)
[2020-03-18] MEDS: gabapentin 100 mg Capsule 200 MG PO (08:45)
[2020-03-18] MEDS: allopurinol 100 mg Tablet 200 MG PO (08:45)
[2020-03-18] MEDS: roflumilast 500 mcg Tablet PO (08:45)
--- NOTE | 2020-03-18 09:15 | P.PN_ITS ---
Subjective Subjective: Interval history: Patient frequently gets agitated and combative. Patient had difficulty swallowing and speech therapy was requested. Patient has not been evaluated yet. WBC is improving. Hemoglobin is 7.9 and platelets appear stable. He had no bowel movement yet. His INR appears to be improving. Creatinine also improved and down to 2.5. Continues to have bilateral infiltrates which appear to be unchanged. Awaiting official report. Patient had 1800 urinary output since yesterday. He is tachycardic as we were trying to avoid oral Cardizem. IV Cardizem is short-acting and does not appear to control it appropriately. Discussed with RN and we will see if we can give oral Cardizem with applesauce. Patient currently on 50 L 40% FiO2 saturating in the low 90s. Vitals/I&O/Wt Last Vital Signs Temp 98.0 F 03/18/20 08:00 Pulse 134 H 03/18/20 08:26 Resp 22 H 03/18/20 08:26 BP 133/79 03/18/20 08:00 Pulse Ox 92 03/18/20 08:26 03/17/20 03/18/20 03/18/20 22:59 06:59 14:59 Intake Total 350 / 640 350 / 990 0 / 0 Output Total 600 / 1000 1000 / 2000 Balance -250 / -360 -650 / -1010 0 / 0 Weight last 48 hrs Weight 80.014 kg Weight 80.014 kg Physical Exam Const: COMMON NORMALS: no acute distress Resp: COMMON NORMALS: normal respiratory effort OTHER: Decreased air movement with coarse breath sounds but no rales or wheezing. Cardio: PALPATION: abnormal PMI RHYTHM: abnormal rhythm irregularly irregular OTHER: No lower extremity edema GI: COMMON NORMALS: Normal to inspection, nondistended, normoactive bowel julián nds present, Soft to palpation and non-tender PALPATION: Yes Soft to palpation Neuro: COMMON NORMALS: no focal motor deficits Urinary Catheter Management^: Patel: Cath Placed During This Visit: yes Reason for Continuing Indwelling Catheter: Accurate Measurement of Urinary Output in Critically Ill Patients Urinary Catheter Date of Insertion: 03/15/20 Urinary Catheter Time of Insertion: 08:19 Data : 03/18/20 06:58 03/18/20 03:30 Micro: Microbiology 03/16/20 09:30 Blood Culture - Preliminary Blood NEGATIVE TO DATE 03/16/20 04:05 Blood Culture - Preliminary Blood NEGATIVE TO DATE A&P Assessment and plan (1) Pneumonia: Initiate Zosyn Aspiration precautions Initiate linezolid instead of vancomycin secondary to renal insufficiency and acute kidney injury. MRSA PCR Sputum culture This could represent residual COVID-19 pneumonia Status: Acute (2) Diastolic CHF: He received Lasix prior to transfer and I gave him Lasix 40 mg IV in the emergency department. Hold any IV fluids Wean oxygen as tolerated Check echocardiogram Troponin was performed and elevation noted but not consistent with acute MT as no significant delta Status: Inactive (3) Anemia: Etiology of anemia is unclear Check stool Hemoccult As he is already been transfused 2 units of packed red blood cells iron, B12 studies, etc. would not be that useful. Repeat hemoglobin tomorrow and monitor for any bleeding This may in some part be secondary to his chronic kidney disease as there is some evidence of anemia on old laboratory at the nursing facility. Baseline hemoglobin may be around 9. Status: Inactive (4) Acute exacerbation of chronic obstructive airways disease: Pulmonary toilet with DuoNeb Prednisone 40 mg daily Status: Acute (5) Pneumonia due to COVID-19 virus: Patient had Covid in October, and has retested positive approximately 4 weeks ago. As I do not have a timeline on his improvement, will place him in the viral ICU currently. Rapid Covid was negative here and PCR testing pending. I suspect, his respiratory symptoms are due to heart failure/bacterial pneumonia or COPD exacerbation. If he makes rapid improvement and gets to his baseline oxygen there may not be a need for further quarantine and he could move out of the viral ICU. I do not think remdesivir is warranted currently. Status: Inactive (6) Hyperglycemia: Sliding scale insulin Check hemoglobin A1c Status: Acute (7) A-fib: Currently on a Cardizem drip Not a candidate for anticoagulation currently secondary to significant anemia Initiate Cardizem 60 mg 3 times daily which he takes at the nursing facility and wean off Cardizem drip. Further adjustments may be needed. Hold Eliquis secondary to concern of severe anemia Status: Acute (8) Chronic kidney disease: Acute kidney injury superimposed on chronic kidney disease. We will see if this improves with diuresis Avoid renal toxic medication Hold any further Bactrim which she was receiving as an outpatient. 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 Currently appears compensated. Status: Acute (11) Oropharyngeal dysphagia: Status: Acute Additional A&P Information Skin breakdown, tunneling wound abdomen. This is small. There is no evidence of significant drainage. Continue packing as was being done at the nursing facility. Dementia/anxiety. Nursing facility as well as family reports Ativan has worked well for her in the past. Continue. Multiple other medical problems as outlined in his past medical history. Full code Hold anticoagulation currently secondary to significant anemia requiring transfusion PLAN: Continue Zosyn but discontinue linezolid for now and monitor. Cultures so far negative. Continue daily evaluation for IV fluids versus diuretic. Currently will hold due to risk for fluid overload. We will try and see if patient can tolerate oral Cardizem with applesauce if not then we will have to restart Cardizem drip. Awaiting speech therapy evaluation Attestations Medical Necessity Statement*: Patient with acute hypoxic and hypercapnic respiratory failure requires close ICU monitoring and treatment. 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
--- NOTE | 2020-03-18 10:45 | XR_ITS ---
WS: [id number] CHEST XRAY TECHNIQUE: Portable chest. CLINICAL INFORMATION: dyspnea/cough FINDINGS: Cardiac pacer. Cardiomegaly. Aortic calcification. Right PICC line with tip in the distal SVC. No pneumothorax. Stable diffuse bilateral pulmonary infi ltrates. XR/XR chest 1V portable [id number] IMPRESSION: Right PICC line with tip in distal SVC. No pneumothorax.
[2020-03-18 11:16] LABS: Glucose Point of Care 210 mg/dL (70-110)
[2020-03-18 11:16] LABS: Glucose Point of Care 189 mg/dL (70-110)
[2020-03-18 11:23] LABS: Basophils % 0.1 %; Eosinophils # 0.1 10^3/uL (0.0-0.8); Eosinophils % 1.1 %; Hematocrit 24.9 % (42.0-52.0); Hemoglobin 7.7 g/dL (11.7-16.6); Lymphocytes # 0.7 10^3/uL (0.8-4.8); Lymphocytes % 5.6 %; Mean Corpuscular HGB Conc 30.9 g/dL (30.0-36.0); Mean Corpuscular Hemoglobin 29.2 pg (28.0-34.0); Mean Corpuscular Volume 94.3 fL (80-94); Mean Platelet Volume 10.5 fL (7.4-10.4); Monocytes # 1.2 10^3/uL (0.2-0.9); Monocytes % 10.2 %; Neutrophils % 81.6 %; Nucleated Red Blood Cells # 0.1 /100WBC; Nucleated Red Blood Cells % 0.5 %; Platelet Count 281 10^3/cmm (130-400); Red Blood Count 2.64 10^6/uL (4.1-5.3); Red Cell Distribution Width 15.2 % (12.1-15.1); White Blood Count 11.5 10^3/uL (4.0-10.0)
[2020-03-18 14:16] LABS: Coronavirus Lab Test PTC Negative
[2020-03-18 17:34] LABS: Glucose Point of Care 186 mg/dL (70-110)
--- NOTE | 2020-03-18 18:42 | PC.NURSE ---
Pt is resting comfortably in bed. Shows no sign of discomfort, 02 sats are mid 80's, call went out to Dr. Cantu to get parameters. New orders received.
[2020-03-18] MEDS: budesonide 0.5 mg/2 mL Neb INHALATION (20:44)
[2020-03-18] MEDS: finasteride 5 mg Tablet PO (20:56)
[2020-03-18 20:57] LABS: Glucose Point of Care 166 mg/dL (70-110)
[2020-03-19] VITALS (40 sets, daily range): BP systolic 119–142; BP diastolic 53–90; PULSE 87–143; RESP 17–33; TEMP 36.4–36.9; O2SAT 83–99
[2020-03-19] MEDS: ipratropium-albuterol 3 mL Neb INHALATION ×6 (00:22→19:55)
[2020-03-19] MEDS: piperacillin-tazobactam 3.375 GM in sodium chloride 0.9% (plus) 50 ML IV ×3 (01:00→16:15)
[2020-03-19 04:06] LABS: Basophils % 0.1 %; Eosinophils # 0.1 10^3/uL (0.0-0.8); Eosinophils % 0.7 %; Hematocrit 23.5 % (42.0-52.0); Hemoglobin 7.2 g/dL (11.7-16.6); Lymphocytes # 0.6 10^3/uL (0.8-4.8); Lymphocytes % 4.3 %; Mean Corpuscular HGB Conc 30.6 g/dL (30.0-36.0); Mean Corpuscular Hemoglobin 28.9 pg (28.0-34.0); Mean Corpuscular Volume 94.4 fL (80-94); Mean Platelet Volume 10.5 fL (7.4-10.4); Monocytes # 1.3 10^3/uL (0.2-0.9); Monocytes % 8.9 %; Neutrophils # 12.16 10^3/uL (1.8-7.7); Neutrophils % 84.7 %; Nucleated Red Blood Cells # 0.1 /100WBC; Nucleated Red Blood Cells % 0.4 %; Platelet Count 277 10^3/cmm (130-400); Red Blood Count 2.49 10^6/uL (4.1-5.3); Red Cell Distribution Width 15.1 % (12.1-15.1); White Blood Count 14.4 10^3/uL (4.0-10.0)
[2020-03-19 04:35] LABS: Alanine Aminotransferase 42 U/L (0-41); Albumin Level 3.2 g/dL (3.5-5.2); Alkaline Phosphatase 96 IU/L (40-130); Anion Gap 13.4 (5-19); Aspartate Amino Transferase 51 U/L (0-40); Calcium 8.9 mg/dL (8.5-10.5); Carbon Dioxide 32 mmol/L (22-29); Chloride 98 mmol/L (98-107); Creatinine Clr Calc Pharmacy 29.7597; Glucose 127 mg/dL (65-115); Magnesium 2.8 mg/dL (1.7-2.3); Osmolality Calculated 315 mOsm/kg (285-295); Potassium 4.4 mmol/L (3.5-5.1); Sodium 139 mmol/L (136-145); Total Bilirubin 0.7 mg/dL (0.15-1.2); Total Protein 6.2 g/dL (6.6-8.7)
[2020-03-19 04:48] LABS: Blood Urea Nitrogen 85 mg/dL (8-23)
[2020-03-19] MEDS: morphine 4 mg/mL SDV 1 mL 2 MG IVP ×2 (05:12→11:39)
[2020-03-19] MEDS: budesonide 0.5 mg/2 mL Neb INHALATION ×2 (07:39→19:55)
[2020-03-19] MEDS: pantoprazole DR 40 mg Tablet PO ×2 (08:00→17:13)
[2020-03-19] MEDS: allopurinol 100 mg Tablet 200 MG PO (08:00)
[2020-03-19] MEDS: roflumilast 500 mcg Tablet PO (08:00)
[2020-03-19] MEDS: gabapentin 100 mg Capsule 200 MG PO ×2 (08:01→17:13)
[2020-03-19] MEDS: dilTIAZem 60 mg Tablet 90 MG PO ×3 (08:01→20:41)
[2020-03-19] MEDS: tamsulosin 0.4 mg Capsule PO (08:01)
--- NOTE | 2020-03-19 08:47 | PC.CHAP ---
Pastoral Care Encounter/Spiritual Assessment Type of Contact [] Declined roasterman visit [] Patient/Family/Request visit [] Outpatient visit [] Follow-up visit [] Physician referral [] Code/Alert [] Routine visit [] Staff referral [] Actively dying [] Patient sleeping [] Family support [] [] Out of room [] Palliative care [] [] Receiving care in room [] Pre-surgical visit [] Trauma [] Long length of stay [x] ICU visit [] Other: Relational/Emotional Strength [] Patient feels connected with others/family/visitors/staff [] Distress [] Loneliness/isolation [] Abandonment Spirituality of Patient [] Person of [place] [] Attends [employer] of their [place] [] Believes in Prayer [] Reads Bible or Buddhist materials [] There are Spiritual issues to be addressed Hydramatic Mechanic Interventions [x] Prayer [] Active listening [] Non-anxious presence [] Spiritual/emotional support [] Crisis/trauma care [] Spiritual counseling [] Bereavement support [] Provided bereavement packet [] Provided Bible/devotional materials [] Provided toy/stuffed animal, coloring book to patient or family member [] Provided Communion [] Anointing/[place] [] Salvation [x] Completed spiritual assessment [] Other: Impact on Illness or Injury [] Angry [] Fearful [] Anxious [] Often cries [] Exhaustion [] Unable to work [] Unable to attend confucianist [] Unable to walk/stand [] Unable to read [] Unable to drive [] Unable to eat/drink [] Unable to sleep [] Unable to be with family [] Patient intubated [] Other: Summary Time spent with patient
--- NOTE | 2020-03-19 10:50 | P.PN_ITS ---
Subjective Subjective: Interval history: Patient denies shortness of breath or chest pain this morning. Continues to be on high flow oxygen requiring 40 L 60% FiO2 to saturate in the mid 90s. White blood cell count again increased and hemoglobin is down to 7.2. Patient's right arm IV line oozing stopped. He had no bowel movement yet. His creatinine slightly improved. His Covid test came back negative therefore he was transferred from viral ICU to regular ICU. His chest x-ray showed some resolution of pneumonia. Dexamethasone was discontinued yesterday. He was tachycardic this morning in 120s and was able to take oral Cardizem. 1 dose of IV Cardizem was given. I have discussed with patient's RN and we will start Cardizem drip if patient continues to have persistently elevated heart rate above 110. Vitals/I&O/Wt Last Vital Signs Temp 98.3 F 03/19/20 08:00 Pulse 117 H 03/19/20 08:00 Resp 21 H 03/19/20 08:00 BP 128/66 03/19/20 08:00 Pulse Ox 94 03/19/20 08:00 03/18/20 03/19/20 03/19/20 22:59 06:59 14:59 Intake Total 250 / 300 100 / 400 340 / 340 Output Total 300 / 300 200 / 500 200 / 200 Balance -50 / 0 -100 / -100 140 / 140 Weight last 48 hrs Weight 80.014 kg Weight 80.014 kg Physical Exam Const: COMMON NORMALS: no acute distress Resp: COMMON NORMALS: normal respiratory effort OTHER: Decreased air movement with coarse breath sounds but no rales or wheezing. Cardio: PALPATION: abnormal PMI RHYTHM: abnormal rhythm irregularly irregular OTHER: No lower extremity edema GI: OTHER: Abdomen is soft and minimally tender and distended. Neuro: COMMON NORMALS: no focal motor deficits Urinary Catheter Management^: Patel: Cath Placed During This Visit: yes Reason for Continuing Indwelling Catheter: Accurate Measurement of Urinary Output in Critically Ill Patients Urinary Catheter Date of Insertion: 03/15/20 Urinary Catheter Time of Insertion: 08:19 Data : 03/19/20 03:24 03/19/20 03:24 Micro: Microbiology 03/18/20 13:59 Occult Blood (FIT) - Final Stool Routine Collection A&P Assessment and plan (1) Pneumonia: Initiate Zosyn Aspiration precautions Initiate linezolid instead of vancomycin secondary to renal insufficiency and acute kidney injury. MRSA PCR Sputum culture This could represent residual COVID-19 pneumonia Status: Acute (2) Diastolic CHF: He received Lasix prior to transfer and I gave him Lasix 40 mg IV in the emergency department. Hold any IV fluids Wean oxygen as tolerated Check echocardiogram Troponin was performed and elevation noted but not consistent with acute SC as no significant delta Status: Inactive (3) Anemia: Etiology of anemia is unclear Check stool Hemoccult As he is already been transfused 2 units of packed red blood cells iron, B12 studies, etc. would not be that useful. Repeat hemoglobin tomorrow and monitor for any bleeding This may in some part be secondary to his chronic kidney disease as there is some evidence of anemia on old laboratory at the nursing facility. Baseline hemoglobin may be around 9. Status: Inactive (4) Acute exacerbation of chronic obstructive airways disease: Pulmonary toilet with DuoNeb Prednisone 40 mg daily Status: Acute (5) Pneumonia due to COVID-19 virus: Patient had Covid in October, and has retested positive approximately 4 weeks ago. As I do not have a timeline on his improvement, will place him in the viral ICU currently. Rapid Covid was negative here and PCR testing pending. I suspect, his respiratory symptoms are due to heart failure/bacterial pneumonia or COPD exacerbation. If he makes rapid improvement and gets to his baseline oxygen there may not be a need for further quarantine and he could move out of the viral ICU. I do not think remdesivir is warranted currently. Status: Inactive (6) Hyperglycemia: Sliding scale insulin Check hemoglobin A1c Status: Acute (7) A-fib: Currently on a Cardizem drip Not a candidate for anticoagulation currently secondary to significant anemia Initiate Cardizem 60 mg 3 times daily which he takes at the nursing facility and wean off Cardizem drip. Further adjustments may be needed. Hold Eliquis secondary to concern of severe anemia Status: Acute (8) Chronic kidney disease: Acute kidney injury superimposed on chronic kidney disease. We will see if this improves with diuresis Avoid renal toxic medication Hold any further Bactrim which she was receiving as an outpatient. 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 Currently appears compensated. Status: Acute (11) Oropharyngeal dysphagia: Status: Acute Additional A&P Information Skin breakdown, tunneling wound abdomen. This is small. There is no evidence of significant drainage. Continue packing as was being done at the nursing facility. Dementia/anxiety. Nursing facility as well as family reports Ativan has worked well for her in the past. Continue. Multiple other medical problems as outlined in his past medical history. Full code Hold anticoagulation currently secondary to significant anemia requiring transfusion PLAN: Continue current monitoring and treatment. We will give patient 1 unit of PRBC and 1 dose of Lasix. Continue holding Eliquis. Will give MiraLAX and senna/Colace. Will proceed with CT scan of the chest, abdomen and pelvis for further evaluation especially in view of worsening white blood cell count Continue physical therapy as much as patient can tolerate. Continue weaning oxygen as saturations permit. Attestations Medical Necessity Statement*: Patient with respiratory failure requires close ICU monitoring and treatment due to high mortality risk. Time Spent in Patient Care: 16 - 35 minutes Coding Level of Care Code Acute Jive Developer for [facility] Fwd Diagnoses Pneumonia J18.9 Diastolic CHF I50.30 Anemia D64.9 Acute exacerbation of chronic obstructive airways disease J44.1 Pneumonia due to COVID-19 virus U07.1; J12.89 Hyperglycemia R73.9 A-fib I48.91 Chronic kidney disease N18.9 Acute respiratory failure with hypoxia and hypercapnia J96.01; J96.02 Combined systolic and diastolic heart failure I50.40 Oropharyngeal dysphagia R13.12
--- NOTE | 2020-03-19 11:00 | CT_ITS ---
WS: [id number] CT CHEST, ABDOMEN, AND PELVIS TECHNIQUE: Noncontrast CT of the chest, abdomen, and pelvis with coronal and sagittal reformatted darby ges. CLINICAL INFORMATION: Distended abdomen, respiratory failure COMPARISON: None. DLP: 2336.[address] scans at [facility] use at least one of these dose optimization techniques: automat ed exposure control; mA and/or kV adjustment per patient size (includes targeted exams where dose is matched to clinical indication); or iterative reconstruction. CT CHEST: Moderate to advanced chronic emphysematous changes. Bilateral diffuse hazy interstitial and airspace infiltrates worse involving the perihilar regions and right lower lobe. Partial areas of consolidatio n with air bronchograms. Findings consistent with pneumonia. Correlation for viral pneumonia. Small bilateral pleural effusions with bibasilar atelectasis. Small pericardial effusion. Aortic calcification. Coronary calcification. CT ABDOMEN AND PELVIS: Noncontrast liver is normal. Adrenal glands are normal. Noncontrast spleen is normal. Normal GE junct ion. Fatty atrophy of the pancreas. Aortic and mesenteric calcification. Proximal renal artery calcif ication. Left renal cyst measuring 2.5 CM. Patel catheter. No free fluid in the pelvis. No evidence of high-grade small or large bowel obstructi on. Tiny fat-containing umbilical hernia. No ascites. CT/CT chest abd pel wo con IMPRESSION: 1. Diffuse bilateral interstitial and airspace infiltrates with partial areas of consolidation. Findings consistent with pneumonia. Recommend correlation for viral pneumonia. 2. Tiny right greater than left pleural effusions. 3. Small pericardial effusion. Cardiomegaly. 4. No abdominal ascites. 5. No free fluid in the abdomen or pelvis. 6. Patel catheter in place. 7. No evidence of high-grade small or large bowel obstruction. 8. Incidental small fat-containing umbilical hernia.
[2020-03-19] MEDS: polyethylene glycol 3350 Pkt 17 gm PO (11:39)
[2020-03-19] MEDS: FUROsemide 10 mg/mL SDV 10mL 80 MG IVP (11:51)
[2020-03-19] MEDS: sodium chloride 0.9% (100 ml) 100 ML 10 ML (13:30)
[2020-03-19] MEDS: sennosides-docusate Tablet 1 TAB PO (17:13)
[2020-03-19] MEDS: finasteride 5 mg Tablet PO (20:40)
[2020-03-19 21:41] LABS: Glucose Point of Care 150 mg/dL (70-110)
[2020-03-19 21:41] LABS: Glucose Point of Care 164 mg/dL (70-110)
[2020-03-19 21:41] LABS: Glucose Point of Care 172 mg/dL (70-110)
[2020-03-19 21:41] LABS: Glucose Point of Care 172 mg/dL (70-110)
[2020-03-20] VITALS (29 sets, daily range): BP systolic 93–147; BP diastolic 49–85; PULSE 0–116; RESP 0–28; TEMP 36.4–36.9; O2SAT 75–98; BMI 23.9
[2020-03-20] MEDS: piperacillin-tazobactam 3.375 GM in sodium chloride 0.9% (plus) 50 ML IV ×2 (00:07→08:12)
[2020-03-20] MEDS: ipratropium-albuterol 3 mL Neb INHALATION ×3 (03:15→16:04)
[2020-03-20 04:22] LABS: Basophils % 0.1 %; Hematocrit 29.1 % (42.0-52.0); Hemoglobin 8.8 g/dL (11.7-16.6); Lymphocytes # 0.3 10^3/uL (0.8-4.8); Lymphocytes % 1.5 %; Mean Corpuscular HGB Conc 30.2 g/dL (30.0-36.0); Mean Corpuscular Hemoglobin 29.2 pg (28.0-34.0); Mean Corpuscular Volume 96.7 fL (80-94); Mean Platelet Volume 10.5 fL (7.4-10.4); Monocytes # 1.4 10^3/uL (0.2-0.9); Monocytes % 6.4 %; Neutrophils # 19.59 10^3/uL (1.8-7.7); Neutrophils % 90.9 %; Nucleated Red Blood Cells % 0.1 %; Platelet Count 300 10^3/cmm (130-400); Red Blood Count 3.01 10^6/uL (4.1-5.3); Red Cell Distribution Width 15.5 % (12.1-15.1); White Blood Count 21.6 10^3/uL (4.0-10.0)
[2020-03-20 04:48] LABS: Alanine Aminotransferase 61 U/L (0-41); Albumin Level 3.1 g/dL (3.5-5.2); Alkaline Phosphatase 85 IU/L (40-130); Aspartate Amino Transferase 52 U/L (0-40); Calcium 9.3 mg/dL (8.5-10.5); Carbon Dioxide 33 mmol/L (22-29); Chloride 100 mmol/L (98-107); Globulin 3.1 g/dL (1.3-4.6); Glucose 155 mg/dL (65-115); Osmolality Calculated 327 mOsm/kg (285-295); Sodium 142 mmol/L (136-145); Total Bilirubin 1.2 mg/dL (0.15-1.2); Total Protein 6.2 g/dL (6.6-8.7)
[2020-03-20 05:07] LABS: Blood Urea Nitrogen 96 mg/dL (8-23)
[2020-03-20 05:08] LABS: Anion Gap 14.1 (5-19); Potassium 5.1 mmol/L (3.5-5.1)
[2020-03-20] MEDS: budesonide 0.5 mg/2 mL Neb INHALATION (07:48)
[2020-03-20 07:55] LABS: Glucose Point of Care 143 mg/dL (70-110)
[2020-03-20] MEDS: sennosides-docusate Tablet 1 TAB PO (08:13)
[2020-03-20] MEDS: roflumilast 500 mcg Tablet PO (08:13)
[2020-03-20] MEDS: tamsulosin 0.4 mg Capsule PO (08:13)
[2020-03-20] MEDS: gabapentin 100 mg Capsule 200 MG PO (08:13)
[2020-03-20] MEDS: allopurinol 100 mg Tablet 200 MG PO (08:13)
[2020-03-20] MEDS: pantoprazole DR 40 mg Tablet PO (08:13)
--- NOTE | 2020-03-20 08:13 | PM.PN ---
Subjective Subjective: Interval history: Patient denies being in pain. His thirsty but unfortunately has hard time drinking thickened liquids through a straw. His creatinine increased to 3.1. WBC count also increased to 21.6. Hemoglobin responded to transfusion and is at 8.8 this morning. Platelets are stable. He had 1200 mL urinary output since yesterday and he appears dry this morning. He remains in atrial fibrillation with rapid ventricular response. He is on Cardizem drip at 15 mcg/min. He is on 35 L heated high flow 60% FiO2. He took his senna yesterday but was unable to take MiraLAX. Patient had no bowel movement yet. DARINEL Green discussed with patient's daughter Leanne who is DPOA although we do not have this documentation in her chart reported that patient did not want to be resuscitated or intubated although again our documentation shows full code. Unfortunately we do not have Leanne's phone number that she said that she will call back later today and Peter will let me know. Vitals/I&O/Wt Last Vital Signs Temp 97.6 F 03/20/20 03:00 Pulse 113 H 03/20/20 07:53 Resp 22 H 03/20/20 07:49 BP 132/69 03/20/20 06:00 Pulse Ox 91 03/20/20 07:49 03/19/20 03/20/20 03/20/20 22:59 06:59 14:59 Intake Total 658.75 / 1060.917 125.00 / 1185.917 50 / 50 Output Total 400 / 710 500 / 1210 Balance 258.75 / 350.917 -375.00 / -24.083 50 / 50 Weight last 48 hrs Weight 80.014 kg Weight 80.014 kg Physical Exam Const: COMMON NORMALS: no acute distress Resp: COMMON NORMALS: normal respiratory effort OTHER: Decreased air movement with coarse breath sounds but no rales or wheezing. Cardio: PALPATION: abnormal PMI RHYTHM: abnormal rhythm irregularly irregular OTHER: No lower extremity edema GI: COMMON NORMALS: Normal to inspection, nondistended, normoactive bowel sounds present, Soft to palpation and non-tender PALPATION: Yes Soft to palpation OTHER: Abdomen is soft and minimally tender and distended. Neuro: COMMON NORMALS: no focal motor deficits Urinary Catheter Management^: Patel: Cath Placed During This Visit: yes Reason for Continuing Indwelling Catheter: Accurate Measurement of Urinary Output in Critically Ill Patients Urinary Catheter Date of Insertion: 03/15/20 Urinary Catheter Time of Insertion: : Data : 03/20/20 04:08 03/20/20 04:08 A&P Assessment and plan (1) Pneumonia: Initiate Zosyn Aspiration precautions Initiate linezolid instead of vancomycin secondary to renal insufficiency and acute kidney injury. MRSA PCR Sputum culture This could represent residual COVID-19 pneumonia Status: Acute (2) Diastolic CHF: He received Lasix prior to transfer and I gave him Lasix 40 mg IV in the emergency department. Hold any IV fluids Wean oxygen as tolerated Check echocardiogram Troponin was performed and elevation noted but not consistent with acute PR as no significant delta Status: Inactive (3) Anemia: Etiology of anemia is unclear Check stool Hemoccult As he is already been transfused 2 units of packed red blood cells iron, B12 studies, etc. would not be that useful. Repeat hemoglobin tomorrow and monitor for any bleeding This may in some part be secondary to his chronic kidney disease as there is some evidence of anemia on old laboratory at the nursing facility. Baseline hemoglobin may be around 9. Status: Inactive (4) Acute exacerbation of chronic obstructive airways disease: Pulmonary toilet with DuoNeb Prednisone 40 mg daily Status: Acute (5) Pneumonia due to COVID-19 virus: Patient had Covid in October, and has retested positive approximately 4 weeks ago. As I do not have a timeline on his improvement, will place him in the viral ICU currently. Rapid Covid was negative here and PCR testing pending. I suspect, his respiratory symptoms are due to heart failure/bacterial pneumonia or COPD exacerbation. If he makes rapid improvement and gets to his baseline oxygen there may not be a need for further quarantine and he could move out of the viral ICU. I do not think remdesivir is warranted currently. Status: Inactive (6) Hyperglycemia: Sliding scale insulin Check hemoglobin A1c Status: Acute (7) A-fib: Currently on a Cardizem drip Not a candidate for anticoagulation currently secondary to significant anemia Initiate Cardizem 60 mg 3 times daily which he takes at the nursing facility and wean off Cardizem drip. Further adjustments may be needed. Hold Eliquis secondary to concern of severe anemia Status: Acute (8) Chronic kidney disease: Acute kidney injury superimposed on chronic kidney disease. We will see if this improves with diuresis Avoid renal toxic medication Hold any further Bactrim which she was receiving as an outpatient. 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 Currently appears compensated. Status: Acute (11) Oropharyngeal dysphagia: Status: Acute Additional A&P Information Skin breakdown, tunneling wound abdomen. This is small. There is no evidence of significant drainage. Continue packing as was being done at the nursing facility. Dementia/anxiety. Nursing facility as well as family reports Ativan has worked well for her in the past. Continue. Multiple other medical problems as outlined in his past medical history. Full code Hold anticoagulation currently secondary to significant anemia requiring transfusion PLAN: Will start patient on half-normal saline for 1 L as clinically he appears dry. Monitor for respiratory status as patient is at risk for fluid overload in view of his cardiomyopathy and pneumonia. Will add metoprolol 50 mg twice daily p.o. and wean off Cardizem drip. Will add vancomycin and Levaquin/Flagyl and discontinue Zosyn. Overall patient has very poor prognosis. Will discuss with Leanne later today to consider comfort measures. Attestations Medical Necessity Statement*: Patient with pneumonia and respiratory failure requires close ICU monitoring and treatment Time Spent in Patient Care: 16 - 35 minutes Coding Level of Care Code Acute Tobacco Roller for [facility] Fwd Diagnoses Pneumonia J18.9 Diastolic CHF I50.30 Anemia D64.9 Acute exacerbation of chronic obstructive airways disease J44.1 Pneumonia due to COVID-19 virus U07.1; J12.89 Hyperglycemia R73.9 A-fib I48.91 Chronic kidney disease N18.9 Acute respiratory failure with hypoxia and hypercapnia J96.01; J96.02 Combined systolic and diastolic heart failure I50.40 Oropharyngeal dysphagia R13.12
[2020-03-20] MEDS: polyethylene glycol 3350 Pkt 17 gm PO (08:15)
[2020-03-20] MEDS: dilTIAZem 60 mg Tablet 90 MG PO (08:17)
[2020-03-20] MEDS: morphine 4 mg/mL SDV 1 mL 2 MG IVP ×2 (09:19→12:15)
[2020-03-20] MEDS: levofloxacin-dextrose 5 % 750 MG/150 ML PREMIX 100 MG IV (09:36)
[2020-03-20] MEDS: sodium chloride 0.9% (100 ml) 100 ML 10 ML (09:39)
[2020-03-20] MEDS: vancomycin 1,000 MG in sodium chloride 0.9% 250 ML 250 MG IV (10:00)
[2020-03-20] MEDS: sodium chloride 0.45% 1,000 ML 75 ML IV (10:00)
[2020-03-20] MEDS: metoprolol tartrate 50 mg Tablet PO (10:03)
--- NOTE | 2020-03-20 12:00 | PC.SOCIAL ---
IMM Updated Page 2 of IMM updated and given to patient. Initialed, dated, and timed and placed back in chart.
[2020-03-20] MEDS: metroNIDAZOLE IV 500 MG/100 ML PREMIX 100 MG IV (12:15)
[2020-03-20] MEDS: LORazepam 2 mg/mL INJ 1 mL 1 MG IVP (16:54)
--- NOTE | 2020-03-20 17:21 | PC.NURSE ---
Family here with patient most of the day. They understand patient condition. Family is agreeing to transition to comfort care at some point tonight. Patients DPOA daughter Leanne called with home information. It is as follows [address]
--- NOTE | 2020-03-20 20:09 | PC.NURSE ---
Time of 19:25 Pt was placed on comfort care with family wishes. Pt passed at 19:25. supervisor filter assembly notified. MTS notified and pt was deemed not a candidate for donation. Family wishes to use [facility]. home notified. Family is waiting on one more family to arrive and wish to keep patient in room until then. Family has no concerns at this time and are pleased with the care the patient received. Belongings were taken by family members. Attempted to notify hospitalist but keeps going to voice mail that is not set up. Will continue to try to notify.
--- NOTE | 2020-03-20 20:38 | PM.EVENT ---
Event Note Event Note: Patient at 1924, note to be done by Dr. Cantu
--- NOTE | 2020-03-20 20:38 | PC.NURSE ---
Hospitalist notified of pt's .
--- NOTE | 2020-03-20 21:35 | PC.NURSE ---
[facility] Ch[facility], pt is not a candidate for eye donation.
--- NOTE | 2020-03-24 16:37 | P.DES_ITS ---
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 (11) Oropharyngeal dysphagia: Reason for Visit Reason for Visit: Transfer/A. Fib w/ RVR, SOB Summary Date and Time of Date of : 03/20/20 Time of : 19:25 Summary Summary: Elderly gentleman presented with respiratory failure secondary to what appeared aspiration pneumonia and/or COVID-19 residual infection. Patient was in atrial fibrillation with rapid ventricular response. He had decreased oral intake and required significant amount of oxygen to keep saturations in the high 80s. Mayco samayoa had very poor prognosis and family proceeded with comfort measures. Additional Data Family: at bedside Attending/PCP notified?: Attending notified Was code activated?: No Autopsy requested?: No Advance directives?: Yes Hospice patient?: No Discharge Plan Discharge Patient Disposition: Condition: Stable Probable Cause of Probable cause of : Cardiac arrest DS Attestations Time Spent in /Discharge Care*: less than 30 min Quality - AMI: AMI present?: No Quality - Stroke: CVA present?: No Symptom Onset Unknown: No Quality - VTE: VTE present?: No Deep Vein Thrombosis/Pulmonary Embolism Present on Admission: No Coding Level of Care Code Acute Customer Leader for [facility] Fwd Diagnoses Pneumonia J18.9 Diastolic CHF I50.30 Anemia D64.9 Acute exacerbation of chronic obstructive airways disease J44.1 Pneumonia due to COVID-19 virus U07.1; J12.89 Hyperglycemia R73.9 A-fib I48.91 Chronic kidney disease N18.9 Acute respiratory failure with hypoxia and hypercapnia J96.01; J96.02 Combined systolic and diastolic heart failure I50.40 Oropharyngeal dysphagia R13.12
== END 2020-03-20 20:56 | disposition expired | DRG 189 ==
LOC: ER 07:00 → ICU 07:11
PROVIDERS: Internal Medicine; Admitting Provider Internal Medicine; Emergency Provider Family Medicine; PCP Family Medicine; Visit Provider Internal Medicine
DX: J96.02 Acute respiratory failure with hypercapnia (principal); J18.9 Pneumonia, unspecified organism; J12.89 Other viral pneumonia; I50.31 Acute diastolic (congestive) heart failure; N17.9 Acute kidney failure, unspecified; J44.0 Chronic obstructive pulmonary disease with (acute) lower respiratory infection; I13.0 Hypertensive heart and chronic kidney disease with heart failure and stage 1 through stage 4 chronic kidney disease, or unspecified chronic kidney disease; Z66 Do not resuscitate; Z51.5 Encounter for palliative care; Z20.828 Contact with and (suspected) exposure to other viral communicable diseases; F41.8 Other specified anxiety disorders; N40.0 Benign prostatic hyperplasia without lower urinary tract symptoms; I48.91 Unspecified atrial fibrillation; E78.5 Hyperlipidemia, unspecified; N18.9 Chronic kidney disease, unspecified; Z87.891 Personal history of nicotine dependence; F03.90 Unspecified dementia, unspecified severity, without behavioral disturbance, psychotic disturbance, mood disturbance, and anxiety
CPT/HCPCS: 12345; 36415; 36416; 36430; 36569; 36600; 51702; 71045; 71250; 74176; 80051; 80053; 81003; 82274; 82330; 82805; 82962; 83036; 83605; 83735; 84484; 85025; 85362; 85378; 85384; 85610; 85730; 86850; 86900; 86920; 87040; 87426; 87635; 87641; 92523; 92610; 93005; 93306; 94640; 94660; 96372; 96375; 99283; J1815; J1940; J1956; J2020; J2060; J2270; J2543; J3370; J3490; J7050; J7626; P9016; S0030